=== PATIENT | female | born 1950 | race Asian ===

== ENCOUNTER 2017-01-26 09:11 | Outpatient (CLI) | payer OTHER ==
[2017-01-26 10:33] LABS: BILIRUBIN,URINE NEGATIVE (NEGATIVE); CLARITY/URINE CLEAR (CLEAR); COLOR,URINE YELLOW (YELLOW); GLUCOSE,URINE NEGATIVE (NEGATIVE); KETONES,URINE NEGATIVE (NEGATIVE); LEUKOCYTE ESTERASE ,URINE NEGATIVE (NEGATIVE); NITRITE, URINE NEGATIVE (NEGATIVE); PH,URINE 5.5 (5.0-8.0); PROTEIN URINE NEGATIVE (NEGATIVE); UROBILINOGEN,URINE 0.2 (0.2-1.0)
[2017-01-26 10:37] LABS: BLOOD, URINE TRACE (NEGATIVE)
[2017-01-26 10:41] LABS: BASOPHILS # (AUTO) 0.1 K/uL (0.0-0.2); EOSINOPHILS # (AUTO) 0.2 K/uL (0.0-0.4); EOSINOPHILS % (AUTO) 3.1 % (0.0-4.0); HEMATOCRIT 38.1 % (36-48); HEMOGLOBIN 12.9 g/dL (12.0-16.0); LYMPHOCYTES # (AUTO) 1.7 K/uL (1.0-5.5); MEAN CORPUSCULAR HEMOGLOBIN 31 pg (27-31); MEAN CORPUSCULAR HGB CONC 34 % (32-36); MEAN CORPUSCULAR VOLUME 91 fL (79.0-98.0); MONOCYTES # (AUTO) 0.5 K/uL (0.0-1.0); MONOCYTES % (AUTO) 8.8 % (1.7-9.3); NEUTROPHILS % (AUTO) 56.1 % (40.0-70.0); PLATELET COUNT (AUTO) 241 K/uL (130-430); RED CELL DISTRIBUTION WIDTH 13.3 % (9.0-15.0); WHITE BLOOD COUNT (AUTO) 5.5 K/uL (4.8-10.8)
[2017-01-26 10:44] LABS: BACTERIA,URINE FEW /HPF (None Seen); RBC,URINE 0-3 /HPF (0-3); WBC,URINE 0-3 /HPF (0-3)
[2017-01-26 11:24] LABS: ALBUMIN 4.1 g/dL (3.4-4.8); CALCIUM 9.4 mg/dL (8.4-11.0); CREATININE 0.6 mg/dL (0.55-1.30); FREE T4 (FREE THYROXINE) 0.7 ng/dL (0.6-1.6); POTASSIUM 3.7 mmol/L (3.5-5.1); THYROID STIMULATING HORMONE 3.51 uIu/mL (0.34-4.82); TOTAL BILIRUBIN 0.6 mg/dL (0.0-1.0); TOTAL PROTEIN, SERUM 7.9 g/dL (6.4-8.3)
== END 2017-01-26 17:49 | disposition home or self-care (01) ==
LOC: SMA 09:11
PROVIDERS: ATTEND Family Medicine
DX: Z12.31 Encounter for screening mammogram for malignant neoplasm of breast (principal)
CPT/HCPCS: 36415; 80053; 80061; 81000; 82272; 83036; 84439; 84443; 85025; G0202

== ENCOUNTER 2017-05-20 07:00 | Day surgery (SDC) | payer OTHER ==
[~2017-05-20] VITALS: Ht 160 cm; Wt 75.3 kg
[2017-05-20] MEDS ORDERED: SIMETHICONE 40 MG/0.6 ML ML ONE (07:39)
[2017-05-20] MEDS ORDERED: MEPERIDINE HCL/PF 100 MG/ML AMP ONE (07:39)
[2017-05-20] MEDS ORDERED: MIDAZOLAM HCL 5 MG/5 ML VIAL ONE (07:40)
[2017-05-20 14:06] VITALS: BP_SYST 125
== END 2017-05-20 10:45 | disposition home or self-care (01) ==
LOC: SMU 07:00 → SDS 07:00
PROVIDERS: ATTEND Internal Medicine Gastroenterology
DX: Z12.11 Encounter for screening for malignant neoplasm of colon (principal); D12.2 Benign neoplasm of ascending colon; D12.5 Benign neoplasm of sigmoid colon; K64.8 Other hemorrhoids; M19.90 Unspecified osteoarthritis, unspecified site
CPT/HCPCS: 45380; 88305; J2175; J2250; J7030

== ENCOUNTER 2017-11-29 07:44 | Outpatient (CLI) | payer OTHER | END 2017-11-29 20:44 | disposition home or self-care (01) | LOC: SRD 07:44 | PROVIDERS: ATTEND Family Medicine | DX: M41.84 Other forms of scoliosis, thoracic region (principal); I70.0 Atherosclerosis of aorta | CPT/HCPCS: 71046-TC ==

== ENCOUNTER 2018-09-02 22:14 | Emergency (ER) | payer OTHER ==
[~2018-09-02] VITALS: Ht 160 cm; Wt 72.6 kg
[2018-09-02 22:30] VITALS: BP_SYST 138
[2018-09-02] MEDS ORDERED: LOSA25TA11 PO (22:48)
[2018-09-02] MEDS ORDERED: ASPI-1153 PO (22:49)
[2018-09-02] MEDS ORDERED: ATOR10TA68 PO (22:49)
[2018-09-02 23:50] VITALS: BP_SYST 138
== END 2018-09-02 23:50 | disposition home or self-care (01) ==
LOC: SED 22:14
DX: S09.90XA Unspecified injury of head, initial encounter (principal); Z79.82 Long term (current) use of aspirin; W19.XXXA Unspecified fall, initial encounter; Y93.89 Activity, other specified; Y92.89 Other specified places as the place of occurrence of the external cause; Y99.8 Other external cause status
CPT/HCPCS: 70450-TC; 99284

== ENCOUNTER 2018-11-12 09:33 | Outpatient (CLI) | payer OTHER ==
[~2018-11-12 09:33] MED LIST: ASPI-1153 PO; ATOR10TA68 PO; LOSA25TA18 PO
[2018-11-12 10:56] LABS: BILIRUBIN,URINE NEGATIVE (NEGATIVE); CLARITY/URINE CLEAR (CLEAR); COLOR,URINE YELLOW (YELLOW); GLUCOSE,URINE NEGATIVE (NEGATIVE); KETONES,URINE NEGATIVE (NEGATIVE); LEUKOCYTE ESTERASE ,URINE TRACE (NEGATIVE); NITRITE, URINE NEGATIVE (NEGATIVE); PROTEIN URINE NEGATIVE (NEGATIVE); UROBILINOGEN,URINE 0.2 (0.2-1.0)
[2018-11-12 11:00] LABS: BLOOD, URINE TRACE (NEGATIVE)
[2018-11-12 11:05] LABS: BACTERIA,URINE RARE /HPF (None Seen); MUCUS,URINE 1+ /LPF (None Seen); RBC,URINE 0-3 /HPF (0-3); WBC,URINE 0-3 /HPF (0-3)
[2018-11-12 11:12] LABS: HEMATOCRIT 39.9 % (36-48); HEMOGLOBIN 13.3 g/dL (12.0-16.0); RED BLOOD CELL COUNT(AUTO) 4.43 MIL/uL (4.2-6.2); WHITE BLOOD COUNT (AUTO) 5.1 K/uL (4.8-10.8)
[2018-11-12 11:13] LABS: BASOPHILS # (AUTO) 0.1 K/uL (0.0-0.2); BASOPHILS % (AUTO) 1.1 % (0.0-2.0); EOSINOPHILS # (AUTO) 0.3 K/uL (0.0-0.4); EOSINOPHILS % (AUTO) 5.6 % (0.0-4.0); LYMPHOCYTES # (AUTO) 1.4 K/uL (1.0-5.5); LYMPHOCYTES % (AUTO) 27.2 % (20.5-51.5); MEAN CORPUSCULAR HEMOGLOBIN 30 pg (27-31); MEAN CORPUSCULAR HGB CONC 33 % (32-36); MEAN CORPUSCULAR VOLUME 90 fL (79.0-98.0); MONOCYTES # (AUTO) 0.4 K/uL (0.0-1.0); MONOCYTES % (AUTO) 7.7 % (1.7-9.3); NEUTROPHILS % (AUTO) 58.4 % (40.0-70.0); PLATELET COUNT (AUTO) 252 K/uL (130-430); RED CELL DISTRIBUTION WIDTH 13.9 % (9.0-15.0)
[2018-11-12 12:54] LABS: CALCIUM 8.7 mg/dL (8.4-11.0); CREATININE 0.55 mg/dL (0.55-1.30)
[2018-11-12 12:55] LABS: ALBUMIN 3.7 g/dL (3.4-4.8); FREE T4 (FREE THYROXINE) 0.6 ng/dL (0.6-1.6); THYROID STIMULATING HORMONE 0.82 uIu/mL (0.34-4.82); TOTAL BILIRUBIN 0.6 mg/dL (0.0-1.0)
[2018-11-14 15:55] LABS: HEMOGLOBIN A1C 5.8 % (4.8-5.6)
== END 2018-11-12 21:16 | disposition home or self-care (01) ==
LOC: SLB 09:33
PROVIDERS: ATTEND Family Medicine
DX: Z12.11 Encounter for screening for malignant neoplasm of colon (principal); R73.09 Other abnormal glucose; R79.89 Other specified abnormal findings of blood chemistry
CPT/HCPCS: 36415; 80053; 80061; 81000-TC; 82306; 83036; 84439; 84443-TC; 85025

== ENCOUNTER 2019-04-09 07:30 | Outpatient (CLI) | payer OTHER | END 2019-04-09 20:49 | disposition home or self-care (01) | LOC: SCA 07:30 | PROVIDERS: ATTEND Internal Medicine Cardiovascular Disease | DX: Z91.89 Other specified personal risk factors, not elsewhere classified (principal) | CPT/HCPCS: 93306 ==

== ENCOUNTER 2019-05-28 10:10 | Outpatient (CLI) | payer OTHER | END 2019-05-28 21:02 | disposition home or self-care (01) | LOC: SUS 10:10 | PROVIDERS: ATTEND Family Medicine | DX: R31.9 Hematuria, unspecified (principal) | CPT/HCPCS: 76770 ==

== ENCOUNTER 2019-08-09 07:42 | Outpatient (CLI) | payer OTHER | END 2019-08-09 21:07 | disposition home or self-care (01) | LOC: SMA 07:42 | PROVIDERS: ATTEND Family Medicine | DX: Z12.31 Encounter for screening mammogram for malignant neoplasm of breast (principal) | CPT/HCPCS: 77067 ==

== ENCOUNTER 2019-12-19 22:40 | Outpatient (CLI) | payer OTHER | END 2019-12-19 22:41 | disposition home or self-care (01) | LOC: SRD 22:40 | PROVIDERS: ATTEND Specialist | DX: S05.91XA Unspecified injury of right eye and orbit, initial encounter (principal); X58.XXXA Exposure to other specified factors, initial encounter; Y93.89 Activity, other specified; Y92.89 Other specified places as the place of occurrence of the external cause; Y99.8 Other external cause status | CPT/HCPCS: 70150-TC ==

== ENCOUNTER 2020-03-21 18:01 | Outpatient (CLI) | payer OTHER ==
[2020-03-21 18:59] LABS: BASOPHILS # (AUTO) 0.1 K/uL (0.0-0.2); BASOPHILS % (AUTO) 1.7 % (0.0-2.0); EOSINOPHILS # (AUTO) 0.2 K/uL (0.0-0.4); EOSINOPHILS % (AUTO) 3.4 % (0.0-4.0); HEMATOCRIT 40.8 % (36-48); HEMOGLOBIN 13.2 g/dL (12.0-16.0); LYMPHOCYTES # (AUTO) 1.4 K/uL (1.0-5.5); MEAN CORPUSCULAR HEMOGLOBIN 30 pg (27-31); MEAN CORPUSCULAR HGB CONC 32 % (32-36); MEAN CORPUSCULAR VOLUME 92 fL (79.0-98.0); MONOCYTES # (AUTO) 0.4 K/uL (0.0-1.0); MONOCYTES % (AUTO) 7.7 % (1.7-9.3); NEUTROPHILS # (AUTO) 2.7 K/uL (1.8-7.7); NEUTROPHILS % (AUTO) 57.2 % (40.0-70.0); PLATELET COUNT (AUTO) 227 K/uL (130-430); RED BLOOD CELL COUNT(AUTO) 4.43 MIL/uL (4.2-6.2); RED CELL DISTRIBUTION WIDTH 14.3 % (9.0-15.0); WHITE BLOOD COUNT (AUTO) 4.7 K/uL (4.8-10.8)
[2020-03-21 19:00] LABS: CLARITY/URINE SL CLOUDY (CLEAR); COLOR,URINE YELLOW (YELLOW); GLUCOSE,URINE NEGATIVE (NEGATIVE); KETONES,URINE TRACE (NEGATIVE); LEUKOCYTE ESTERASE ,URINE 2+ (NEGATIVE); NITRITE, URINE NEGATIVE (NEGATIVE); PH,URINE 5.5 (5.0-8.0); PROTEIN URINE NEGATIVE (NEGATIVE)
[2020-03-21 19:10] LABS: BLOOD, URINE TRACE (NEGATIVE)
[2020-03-21 19:11] LABS: BILIRUBIN,URINE 1+ (NEGATIVE)
[2020-03-21 19:17] LABS: RBC,URINE 0-3 /HPF (0-3)
[2020-03-21 19:18] LABS: BACTERIA,URINE MANY /HPF (None Seen)
[2020-03-21 19:19] LABS: MUCUS,URINE 3+ /LPF (None Seen)
[2020-03-21 19:20] LABS: ALBUMIN 3.8 g/dL (3.4-4.8); CALCIUM 9.5 mg/dL (8.4-11.0); CREATININE 0.78 mg/dL (0.55-1.30); POTASSIUM 3.9 mmol/L (3.5-5.1)
[2020-03-21 19:53] LABS: FREE T4 (FREE THYROXINE) 1.2 ng/dl (0.8-1.5); THYROID STIMULATING HORMONE 2.32 uIu/mL (0.36-3.74)
== END 2020-03-21 20:56 | disposition home or self-care (01) ==
LOC: SLB 18:01
PROVIDERS: ATTEND Family Medicine
DX: Z12.11 Encounter for screening for malignant neoplasm of colon (principal); Z00.00 Encounter for general adult medical examination without abnormal findings
CPT/HCPCS: 36415; 80053; 80061; 81000-TC; 83036; 84439; 84443-TC; 85025

== ENCOUNTER 2020-06-22 17:28 | Outpatient (CLI) | payer OTHER ==
[~2020-06-22 17:28] MED LIST changes: -ASPI-1153 PO; +ASPI-1393 PO
[2020-06-22 18:19] LABS: ALBUMIN 4.1 g/dL (3.4-4.8); CREATININE 0.73 mg/dL (0.55-1.30); POTASSIUM 3.9 mmol/L (3.5-5.1); THYROID STIMULATING HORMONE 1.14 uIu/mL (0.36-3.74); TOTAL BILIRUBIN 0.8 mg/dL (0.0-1.0)
== END 2020-06-22 21:01 | disposition home or self-care (01) ==
LOC: SLB 17:28
PROVIDERS: ATTEND Internal Medicine Cardiovascular Disease
DX: E03.9 Hypothyroidism, unspecified (principal); E78.5 Hyperlipidemia, unspecified; I10 Essential (primary) hypertension
CPT/HCPCS: 36415; 80053; 80061; 84443-TC

== ENCOUNTER 2020-08-11 07:30 | Outpatient (CLI) | payer OTHER | END 2020-08-11 20:26 | disposition home or self-care (01) | LOC: SMA 07:30 | PROVIDERS: ATTEND Family Medicine | DX: Z12.31 Encounter for screening mammogram for malignant neoplasm of breast (principal); N64.89 Other specified disorders of breast | CPT/HCPCS: 77067 ==

== ENCOUNTER 2020-12-22 13:21 | Outpatient (CLI) | payer OTHER ==
[2020-12-22 14:59] LABS: CHOLESTEROL 181 mg/dL (<200); HDL CHOLESTEROL 112 mg/dL (>55); LDL CHOLESTEROL 71 mg/dL (<100); TRIGLYCERIDES 32 mg/dL (30-150)
== END 2020-12-22 21:06 | disposition home or self-care (01) ==
LOC: SLB 13:21
DX: I10 Essential (primary) hypertension (principal); E78.5 Hyperlipidemia, unspecified
CPT/HCPCS: 36415; 80061; 83036

== ENCOUNTER 2021-06-10 08:54 | Outpatient (CLI) | payer OTHER | END 2021-06-10 20:13 | disposition home or self-care (01) | LOC: SMI 08:54 | PROVIDERS: ATTEND Family Medicine | DX: M47.816 Spondylosis without myelopathy or radiculopathy, lumbar region (principal); M41.86 Other forms of scoliosis, lumbar region; M54.32 Sciatica, left side; M51.26 Other intervertebral disc displacement, lumbar region | CPT/HCPCS: 72148 ==

== ENCOUNTER 2021-08-27 07:42 | Outpatient (CLI) | payer OTHER | END 2021-08-27 21:31 | disposition home or self-care (01) | LOC: SRD 07:42 → SMA 21:31 | PROVIDERS: ATTEND Family Medicine | DX: Z12.31 Encounter for screening mammogram for malignant neoplasm of breast (principal) | CPT/HCPCS: 77067 ==

== ENCOUNTER 2022-05-20 06:36 | Day surgery (SDC) | payer OTHER ==
[~2022-05-20] VITALS: Ht 160 cm; Wt 56.7 kg
[2022-05-20] MEDS ORDERED: SIMETHICONE 40 MG/0.6 ML ML ONE (06:46)
[2022-05-20] MEDS ORDERED: MEPERIDINE 100 MG INJ. 100 MG/ML VIAL ONE (06:47)
[2022-05-20] MEDS ORDERED: MIDAZOLAM HCL 5 MG/5 ML VIAL ONE (06:47)
[2022-05-20 14:34] VITALS: BP_SYST 125
== END 2022-05-20 11:18 | disposition home or self-care (01) ==
LOC: SDS 06:36 → SMU 06:37 → SDS 11:18
PROVIDERS: ATTEND Internal Medicine Gastroenterology
DX: Z12.11 Encounter for screening for malignant neoplasm of colon (principal); D12.3 Benign neoplasm of transverse colon; K64.8 Other hemorrhoids; Z86.010 Personal history of colon polyps; Z79.899 Other long term (current) drug therapy; Z20.822 Contact with and (suspected) exposure to COVID-19
CPT/HCPCS: 36415; 45385; 88305; 99152; U0003; G0378; J2250; J2175

== ENCOUNTER 2022-06-08 12:19 | Outpatient (CLI) | payer OTHER ==
[2022-06-08 13:22] LABS: BILIRUBIN,URINE NEGATIVE (NEGATIVE); BLOOD, URINE NEGATIVE (NEGATIVE); CLARITY/URINE CLEAR (CLEAR); COLOR,URINE YELLOW (YELLOW); GLUCOSE,URINE NEGATIVE (NEGATIVE); KETONES,URINE NEGATIVE (NEGATIVE); LEUKOCYTE ESTERASE ,URINE NEGATIVE (NEGATIVE); NITRITE, URINE NEGATIVE (NEGATIVE); PH,URINE 5.5 (5.0-8.0); PROTEIN URINE NEGATIVE (NEGATIVE); UROBILINOGEN,URINE 0.2 (0.2-1.0)
[2022-06-08 13:23] LABS: EOSINOPHILS # (AUTO) 0.1 K/uL (0.0-0.4); EOSINOPHILS % (AUTO) 2.5 % (0.0-4.0); HEMATOCRIT 39.1 % (36-48); HEMOGLOBIN 13.2 g/dL (12.0-16.0); LYMPHOCYTES # (AUTO) 1.2 K/uL (1.0-5.5); MEAN CORPUSCULAR HEMOGLOBIN 31 pg (27-31); MEAN CORPUSCULAR HGB CONC 34 % (32-36); MEAN CORPUSCULAR VOLUME 91 fL (79.0-98.0); MONOCYTES # (AUTO) 0.3 K/uL (0.0-1.0); MONOCYTES % (AUTO) 7.3 % (1.7-9.3); NEUTROPHILS # (AUTO) 2.6 K/uL (1.8-7.7); NEUTROPHILS % (AUTO) 60.2 % (40.0-70.0); PLATELET COUNT (AUTO) 213 K/uL (130-430); RED BLOOD CELL COUNT(AUTO) 4.29 MIL/uL (4.2-6.2); RED CELL DISTRIBUTION WIDTH 14.6 % (9.0-15.0); WHITE BLOOD COUNT (AUTO) 4.3 K/uL (4.8-10.8)
[2022-06-08 13:43] LABS: ALANINE AMINOTRANSFERASE 28 U/L (12-78); ALBUMIN 3.7 g/dL (3.4-4.8); ANION GAP 4 (5-15); ASPARTATE AMINOTRANSFERASE 20 U/L (10-37); CHLORIDE 106 mmol/L (98-107); CHOLESTEROL 267 mg/dL (<200); CREATININE 0.76 mg/dL (0.55-1.30); FREE T4 (FREE THYROXINE) 1.1 ng/dL (0.6-1.6); GLUCOSE 89 mg/dL (70-99); HDL CHOLESTEROL 120 mg/dL (>55); LDL CHOLESTEROL 140 mg/dL (<100); POTASSIUM 4.6 mmol/L (3.5-5.1); THYROID STIMULATING HORMONE 1.67 uIu/mL (0.34-4.82); TOTAL BILIRUBIN 0.6 mg/dL (0.0-1.0); TRIGLYCERIDES 47 mg/dL (30-150); UREA NITROGEN, BLOOD 20 mg/dL (8-21)
== END 2022-06-08 21:01 | disposition home or self-care (01) ==
LOC: SLB 12:19
PROVIDERS: ATTEND Family Medicine
DX: Z00.00 Encounter for general adult medical examination without abnormal findings (principal); Z12.11 Encounter for screening for malignant neoplasm of colon; I10 Essential (primary) hypertension; E78.5 Hyperlipidemia, unspecified; R53.82 Chronic fatigue, unspecified; Z83.3 Family history of diabetes mellitus
CPT/HCPCS: 36415; 80053; 80061; 81003; 82306; 83036; 84439; 84443; 85025

== ENCOUNTER 2022-07-14 07:35 | Outpatient (CLI) | payer OTHER | END 2022-07-14 20:23 | disposition home or self-care (01) | LOC: SCA 07:35 | PROVIDERS: ATTEND Family Medicine | DX: I08.3 Combined rheumatic disorders of mitral, aortic and tricuspid valves (principal); R94.31 Abnormal electrocardiogram [ECG] [EKG]; R01.1 Cardiac murmur, unspecified | CPT/HCPCS: 93306 ==

== ENCOUNTER 2022-10-12 16:00 | Outpatient (CLI) | payer OTHER ==
[2022-10-12 16:53] LABS: ALBUMIN 3.8 g/dL (3.4-4.8); BILIRUBIN,DIRECT 0.2 mg/dL (0.0-0.3); TOTAL BILIRUBIN 0.9 mg/dL (0.0-1.0)
== END 2022-10-12 19:38 | disposition home or self-care (01) ==
LOC: SGI 16:00
PROVIDERS: ATTEND Family Medicine
DX: E78.00 Pure hypercholesterolemia, unspecified (principal)
CPT/HCPCS: 36415; 80061; 80076

== ENCOUNTER 2023-04-11 10:15 | Outpatient (CLI) | payer OTHER ==
[2023-04-11 11:40] LABS: ALBUMIN 3.7 g/dL (3.4-4.8); BILIRUBIN,DIRECT 0.1 mg/dL (0.0-0.3); TOTAL BILIRUBIN 0.6 mg/dL (0.0-1.0); TOTAL PROTEIN, SERUM 7.7 g/dL (6.4-8.3)
== END 2023-04-11 20:52 | disposition home or self-care (01) ==
LOC: SLB 10:15
PROVIDERS: ATTEND Family Medicine
DX: E78.2 Mixed hyperlipidemia (principal)
CPT/HCPCS: 36415; 80061; 80076